=== PATIENT | female | born 1960 | race Native Hawaiian/Other Pacific Islander ===

== ENCOUNTER 2019-12-13 13:11 | Outpatient (CLI) | payer OTHER | END 2019-12-13 19:27 | disposition home or self-care (01) | LOC: MRI 13:11 | DX: M54.9 Dorsalgia, unspecified (principal) ==

== ENCOUNTER 2020-06-05 09:18 | Outpatient (CLI) | payer OTHER | END 2020-06-05 20:17 | disposition home or self-care (01) | LOC: CT 09:18 | DX: N85.8 Other specified noninflammatory disorders of uterus (principal) | CPT/HCPCS: 36415; 82565; 84520; Q9963 ==

== ENCOUNTER 2020-10-08 08:56 | Outpatient (CLI) | payer OTHER | END 2020-10-08 21:36 | disposition home or self-care (01) | LOC: MAMMO 08:56 | PROVIDERS: ATTEND Family Medicine | DX: M81.0 Age-related osteoporosis without current pathological fracture (principal); Z12.31 Encounter for screening mammogram for malignant neoplasm of breast; Z13.820 Encounter for screening for osteoporosis; T14.8XXA Other injury of unspecified body region, initial encounter | CPT/HCPCS: A9561 ==